=== PATIENT | female | born 2000 | race African-American/Black ===

== ENCOUNTER → 2023-04-21 | Emergency (ER) | payer SELFPAY ==
[2023-04-21 19:44] LABS: Specific Gravity 1.018 (1.005-1.030); Urine Bacteria 20-50 /HPF (<20); Urine Bilirubin NEGATIVE (Negative); Urine Blood Negative (Negative); Urine Clarity Extremely Turbid (Clear); Urine Color Light-Yellow (Yellow); Urine Culture Reflex Order NOT NEEDED; Urine Glucose NEGATIVE (Negative); Urine Ketones NEGATIVE (Negative); Urine Microscopic Reflex YN ORDER UMIC; Urine Mucus 1+ /HPF (None Seen); Urine Nitrite NEGATIVE (Negative); Urine Protein NEGATIVE (Negative); Urine RBC <5 /HPF (None Seen); Urine Urobilinogen Normal (Normal); Urine WBC <5 /HPF (<5); Urine pH 5.5 (5.0-7.0)
--- NOTE | 2023-04-21 20:28 | ER ---
Nurse's Notes [facility] Name: Deja Hassan Age: 23 yrs Sex: Female : 2000 Arrival Date: 04/21/2023 Time: 18:06 Bed 10 Private MD: Diagnosis: UTI/ Urinary tract infection, site not specified Presentation: 04/20 19:04 Chief complaint: Patient states: Pt states LMP 03/21/2023. Pt states urine ll1 tests have been negative. Pt c/o headaches, urinary frequency, fatigue x 3-4 days. Pt has history of spont ab at 6 wks on 10/2020. Coronavirus screen: At this time, the client does not indicate any symptoms associated with coronavirus-19. Ebola Screen: No symptoms or risks identified at this time. Initial Sepsis Screen: Does the patient meet any 2 criteria? No. Patient's initial sepsis screen is negative. Does the patient have a suspected source of infection? No. Patient's initial sepsis screen is negative. Risk Assessment: Do you want to hurt yourself or someone else? Patient reports no desire to harm self or others. Onset of symptoms was April 17, 2023. 19:04 Method Of Arrival: Ambulatory ll1 19:04 Acuity: ELADIO 3 ll1 Triage Assessment: 19:07 Headache History: Denies prior headaches. General: Appears in no apparent distress. ll1 Behavior is calm, cooperative. Pain: Denies pain. Pain: Pain at worst was 8 out of 10 on a pain scale. Pain began 2-3 days ago. Also complains of fatigue. EENT: No deficits noted. No signs and/or symptoms were reported regarding the EENT system. Neuro: Denies headache. Cardiovascular: No deficits noted. Respiratory: No deficits noted. GI: No deficits noted. No signs and/or symptoms were reported involving the gastrointestinal system. : Denies urinary frequency. Derm: No deficits noted. No signs and/or symptoms reported regarding the dermatologic system. Musculoskeletal: No deficits noted. No signs and/or symptoms reported regarding the musculoskeletal system. Historical: - Allergies: 19:07 No Known Allergies; ll1 - Home Meds: 19:07 Vitamin Oral [Active]; ll1 - PMHx: 19:07 None; ll1 - PSHx: 19:07 None; ll1 - Immunization history:: Adult Immunizations unknown. - Social history:: Smoking status: Reported history of juuling and/or vaping. Screenin:17 [facility] ED Fall Risk Assessment (Adult) History of falling in the last 3 months, kd3 including since admission No falls in past 3 months (0 pts) Confusion or Disorientation No (0 pts) Intoxicated or Sedated No (0 pts) Impaired Gait No (0 pts) Mobility Assist Device Used No (0 pt) Altered Elimination No (0 pt) Score/Fall Risk Level 0 - 2 = Low Risk Oriented to surroundings. Abuse screen: Denies threats or abuse. Denies injuries from another. Nutritional screening: No deficits noted. Tuberculosis screening: No symptoms or risk factors identified. Assessment: 20:17 General: Appears in no apparent distress. Behavior is calm, cooperative. Pain: Denies kd3 pain. Neuro: Level of Consciousness is awake, alert, obeys commands, Oriented to person, place, time, situation. Cardiovascular: Patient's skin is warm and dry. Respiratory: Airway is patent Trachea midline Respiratory effort is even, unlabored, Respiratory pattern is regular, symmetrical. Vital Signs: 19:04 BP 139 / 81; Pulse 67; Resp 16; Temp 98.4(TE); Pulse Ox 100% ; Weight 72.57 kg; Height ll1 5 ft. 6 in. ; Pain 0/10; 20:20 BP 125 / 86; Pulse 68; Resp 19; Pulse Ox 100% on R/A; kd3 19:04 Body Mass Index 25.82 (72.57 kg, 167.64 cm) ll1 19:04 Pain Scale: Adult ll1 ED Course: 18:10 Patient arrived in ED. im 18:11 Debby Waggoner FNP-C is PHCP. kb 18:11 Kunal Lee MD is Attending Physician. kb 19:06 Triage completed. ll1 19:09 Arm band placed on right wrist. ll1 20:17 Patient has correct armband on for positive identification. Provided Education on: kd3 blood draw . 20:20 Neeru Zuniga, RN is Primary Nurse. kd3 20:33 No provider procedures requiring assistance completed. Patient did not have IV access kd3 during this emergency room visit. Administered Medications: No medications were administered Medication: 20:17 VIS not applicable for this client. kd3 Outcome: 20:27 Discharge ordered by . nicolas 20:33 Discharged to home ambulatory, kd3 20:33 Condition: stable 20:33 Discharge instructions given to patient, Instructed on discharge instructions, follow up and referral plans. Demonstrated understanding of instructions, follow-up care, medications, Prescriptions given X 1, :33 Patient left the ED. kd3 Signatures: Debby Waggoner, SLEEVER-C BRYON-Winnie Esparza RN RN ll1 Neeru Zuniga RN RN kd3 Leanna Espinoza
--- NOTE | 2023-04-21 20:28 | EDPHYS ---
Physician Documentation [facility] Name: Deja Hassan Age: 23 yrs Sex: Female : 2000 Arrival Date: 04/21/2023 Time: 18:06 Bed 10 Private MD: ED Physician Kunal Lee HPI: 04/20 18:23 This 23 yrs old Female presents to ER via Unassigned with complaints of Last menstrual kb cycle on 03/21/23, Headache, Fatigue. 18:23 Patient is a 23-year-old female who presents for possible . States she is 8 kb days late on her menstrual cycle and has been having headaches, fatigue and urinary frequency for 2 days. States she is taken multiple home test that were all negative but she believes she is so she wanted a serum test.. Historical: - Allergies: 19:07 No Known Allergies; ll1 - Home Meds: 19:07 Vitamin Oral [Active]; ll1 - PMHx: 19:07 None; ll1 - PSHx: 19:07 None; ll1 - Immunization history:: Adult Immunizations unknown. - Social history:: Smoking status: Reported history of juuling and/or vaping. ROS: 18:19 Constitutional: As per HPI kb Exam: 18:19 Constitutional: This is a well developed, well nourished patient who is awake, alert, kb and in no acute distress. Head/Face: Normocephalic, atraumatic. ENT: Moist Mucous membranes Cardiovascular: Regular rate Respiratory: Respirations even and unlabored. No increased work of breathing. Talking in full sentences Abdomen/GI: Soft, non-tender. No distention Skin: Warm, dry with normal turgor. Normal color. MS/ Extremity: Pulses equal, no cyanosis. Neurovascular intact. Full, normal range of motion. Neuro: Awake and alert, GCS 15, oriented to person, place, time, and situation. Moves all extremities. Normal gait. Vital Signs: 19:04 BP 139 / 81; Pulse 67; Resp 16; Temp 98.4(TE); Pulse Ox 100% ; Weight 72.57 kg; Height ll1 5 ft. 6 in. ; Pain 0/10; 20:20 BP 125 / 86; Pulse 68; Resp 19; Pulse Ox 100% on R/A; kd3 19:04 Body Mass Index 25.82 (72.57 kg, 167.64 cm) ll1 19:04 Pain Scale: Adult ll1 MDM: 18:13 Patient medically screened. kb 18:21 Differential diagnosis: , uti, dehydration. Data reviewed: vital signs, nurses kb notes. 20:27 Counseling: I had a detailed discussion with the patient and/or guardian regarding the kb historical points, exam findings, and any diagnostic results supporting the discharge/admit diagnosis, lab results, the need for outpatient follow up, an OB/Gyne specialist, to return to the emergency department if symptoms worsen or persist or if there are any questions or concerns that arise at home. 04/20 18:19 Order name: Test, Serum; Complete Time: 20:26 kb 04/20 18:22 Order name: Urinalysis w/ reflexes; Complete Time: 19:49 kb Administered Medications: No medications were administered Disposition: 20:44 Co-signature as Attending Physician, Kunal Lee MD I reviewed the patient's care rt provided by the Advanced Practice Provider and agree with the diagnosis and treatment plan. Disposition Summary: 04/21/23 20:27 Discharge Ordered Notes: Location: Home kb Condition: Stable kb Diagnosis - UTI/ Urinary tract infection, site not specified kb Followup: kb - With: Emergency Department - When: As needed - Reason: Worsening of condition Followup: kb - With: Private Physician - When: 2 - 3 days - Reason: Recheck today's complaints, Continuance of care, Re-evaluation by your physician Discharge Instructions: - Discharge Summary Sheet kb - Urinary Tract Infection, Adult, [id number] kb Forms: - Medication Reconciliation Form kb - Thank You Letter kb - Antibiotic Education kb - Prescription Opioid Use kb - Patient Portal Instructions kb - Leadership Thank You Letter kb Prescriptions: - Macrobid 100 mg Oral Capsule - take 1 capsule ORAL route every 12 hours for 10 days; 20 capsule; Refills: 0, kb Product Selection Permitted Signatures: Dispatcher [employer] Debby Roe FNP-C FNP-Ckb Lewis, Lynsay, RN RN ll1 Kunal Lee MD MD rt
[2023-04-21 21:38] VITALS: BP 125/86; TEMP 98.4; O2SAT 100
== END ==
LOC: ER 18:06
DX: N39.0 Urinary tract infection, site not specified (principal)
CPT/HCPCS: 36415; 81001; 84703; 99283

== ENCOUNTER 2023-08-05 07:55 | Emergency (ER) | payer OTHER, SELFPAY ==
--- OUTSIDE RECORDS SUMMARY | 2023-08-05 07:59 | XMS REPORT | Continuity of Care Document ---
Author Name Unknown Address [address] [facility] [address] [place] [address] [facility] thconnect Address [address] [facility] [address] [place] [address] Care Team Providers Care Gallery Manager Name Role Phone Pcp, Patient Does Not Have A Primary Care Physic mikael VAL MITCHELL Attending Clinician Unavailable Doctor Unassigned, [place] Attending Clinician U omar Patterson MD, Andria Johansen Attending Clinician Val Mitchell MD Attending Clinician Arthur SALDIVAR, Valentino Carlisle Attending Clinician Unavaila ble 2, [facility] Attending Clinician Unavailable Payers Payer Name Policy Type Policy Number Effective Date Expirati on Date Source [place]ICAID [place] [id number] 2023 00:00:00 Problems Condition Name Condition Details Condition Category Status Onset Date Resolution Date Last Treatment Date Treating Clinician Comments Source High-risk in first trimester High-risk in first trimester Disease Active 07-19 00:00: 00 [facility] Less than 8 weeks gestation of Less than 8 weeks gestation of Disease Active 07-19 00:00: 00 [facility] Mental disorder in , antepartum , first trimester Mental disorder in , antepartum , first trimester Disease Active 07-19 00:00: 00 [facility] Allergies, Adverse Reactions, Alerts Allergy Name Allergy Type Status Severity Reaction(s) Onset Date Inactive Date Treating Clinician Comments Source NO KNOWN ALLERGIE S Drug Class Active [facility] Social History Social Habit Start Date Stop Date Quantity Comments Source ASSERTION 2023-06-10 00:00:00 [facility] Tobacco use and exposure 2023-07-20 00:00:00 2023-07-20 00:00:00 Smokeless tobacco non-user [facility] Alcoholic beverage intake 2023-07-20 00:00:00 2023-07-20 00:00:00 Ex-drinker (finding) [facility] History of Social function 2023-07-20 00:00:00 2023-07-20 00:00:00 [facility] Sex assigned at 2000 00:00:00 2000 00:00:00 [facility] Smoking Status Start Date Stop Date Source Never smoked tobacco [facility] Medications Ordered Medication Name Filled Medication Name Start Date Stop Date Current Medication? Ordering Clinician Indication Dosage Frequency Signature (SIG) Comments Components Source metroNIDAZO LE 500 mg tablet 07-23 00:00: 00 Yes [id number] 500mg Take 1 tablet by mouth every 12 (twelve) hours. [facility] Vital Signs Vital Name Observation Time Observation Value Comments S ource Systolic blood pressure 2023-07-20 19:24:00 123 mm[Hg] [facility] Diastolic blood pressure 2023-07-20 19:24:00 80 mm[Hg] [facility] Heart rate 2023-07-20 19:24:00 89 /min [facility] Body temperature 2023-07-20 19:24:00 36.56 Mariella [facility] Respiratory rate 2023-07-20 19:24:00 18 /min [facility] Body height 2023-07-20 19:24:00 167.6 cm [facility] Body weight 2023-07-20 19:24:00 82.373 kg [facility] BMI 2023-07-20 19:24:00 29.31 kg/m2 [facility] Procedures Procedure Date / Time Performed Performing Clinician Source US OB TRANSVAGINAL 2023-07-20 22:42:37 Val Mitchell [facility] URINE CULTURE 2023-07-20 20:16:00 Adum, Val Arias [facility] URINE DRUG (IMMUNOASSAY) - COMPREHENSIVE DRUG SCREEN 2023-07-20 20:07:00 Adum, Val Silvina [facility] GC & CHLAMYDIA AMPLIFIED ASSAY 2023-07-20 20:07:00 Adum, Avl Silvina [facility] GALV ONLY - VAGINAL PATHOGENS BY NUCLEIC ACID TESTING 2023-07-20 20:07:00 Adum, Val Silvina [facility] TRICHOMONAS AMPLIFIED ASSAY 2023-07-20 20:07:00 Adum, Val Silvina [facility] PAP SMEAR-LIQUID BASED-CP 2023-07-20 20:07:00 Adum, Val oCol [facility] POCT TEST 2023-07-20 00:00:00 Adum, Val Cool [facility] POCT URINALYSIS W/O SPECIFIC GRAVITY 2023-07-20 00:00:00 Adum, Val Silvina [facility] Encounters Start Date/Time End Date/Time Encounter Type Admission Type Attending [facility] Care Facility Care Department Encounter ID Source 2023-08-17 16:15:00 2023-08-17 16:15:00 Outpatient R ADUM, VAL [facility] [id number] [facility] 2023-08-03 00:00:00 2023-08-03 14:59:34 Patient Secure Msg Doctor Unassigned, [place] [facility] ..114 350.1.13.10 4.2.7.2.686 [id number] [facility] 2023-07-31 00:00:00 2023-07-31 09:49:15 Telephone Andria Patterson [facility] .114 350.1.13.10 4.2.7.2.686 [id number] [facility] 2023-07-25 00:00:00 2023-07-27 16:10:09 Telephone Val Mitchell [facility] 1..114 350.1.13.10 4.2.7.2.686 [id number] 134 [id number] [facility] 2023-07-25 14:30:00 2023-07-25 14:30:00 Outpatient R ADVAL LAWLER [facility] [id number] [facility] 2023-07-24 00:00:00 2023-07-24 09:55:31 Telephone AdumVal [facility] 1.2.840.114 350.1.13.10 4.2.7.2.686 [id number] 134 [id number] [facility] 2023-07-21 00:00:00 2023-07-22 07:02:21 Nurse Triage Arthur [facility] 1.2.840.114 350.1.13.10 4.2.7.2.686 [id number] [facility] 2023-07-20 15:30:00 2023-07-20 15:45:00 [employer]illing [employer] Professional Visit 2, [facility] Lab AdVal lawler [facility] 1.2.840.114 350.1.13.10 4.2.7.2.686 [id number] [facility] 2023-07-20 14:00:00 2023-07-20 15:16:29 Initial Visit FedeVal lawler [facility] 1.2.840.114 350.1.13.10 4.2.7.2.686 [id number] 134 [id number] [facility] 2023-07-20 14:00:00 2023-07-20 15:16:29 Outpatient R STEPHENVAL VIVIAN [facility] [id number] [facility] Results Test Description Test Time Test Comments Results Result Co mments Source [facility] w/o Specific Tzwoddh5862-93-75 19:26:00* Test Item Value Reference Range Interpretation Comme nts POCT PH U (test code = 3254) n/a 5-8 POCT U LEUK EST (test code = 3263) n/a Negative - Negative POCT U NIT (test code = 3262) n/a Negative - Negati ve POCT U PROT (test code = 3259) negative Negative - Negat ed POCT U GLU (test code = 3256) normal Negative - Negati ve POCT U KETONE (test code = 3258) n/a Negative - Neg ative POCT U BLD (test code = 3257) n/a Negative - Negati ve [facility] Ejci3263-41-29 19:25:00* Test Item Value Reference Range Interpretation Comme nts POCT PREG (test code = 1605) Positive On board controls acceptable with C Line (test code = 3574) Yes POCT PREG LOT # (test code = 3575) POCT PREG TEST DATE ( test code = 3576) [facility] Aaki0897-83-46 19:25:00* Test Item Value Reference Range Interpretation Comme nts POCT PREG (test code = 1605) Positive On board controls acceptable with C Line (test code = 3574) Yes POCT PREG LOT # (test code = 3575) POCT PREG TEST DATE ( test code = 3576) [facility] Notes Date/Time Note Provider Source 2023-07-31 09:45:13 1318-48-97O22:45:13F ormatting of this note might be different from the original.Spoke with patient. Patient identification verified by name and . Patient reports she is dizzy while at work today. Patient states seh ate a couple bowls of cereal before work. Patient denies nausea, vomiting, headache, vision changes. Patient advised to increase water intake, eat nutritious meals with snacks, use compression socks while at work. Er precautions given. Patient advised to contact clinic if dizziness does not go away with recommendations. Patient verbalized understanding.Chris Rush RN 07/31/2023 9:49 AM 69868-7Tfgpdaksc encounter RvlsPH2964-99-22G66:49:15Telephone encounter NoteTXT1.2.840.593596.1.13.104.2.7 .2.438373|[id number] for patient atoj16776-8AlxsNYGLCUCOONDCvgudwkc d C-CDA narrative [id number] Collins RN[id number] 32DIOAZLPDNXCJAYLGUOLIKK3389-20-48 T09:49:151.2.840.850393.1.72.3.15| 1.2.840.467818.1.13.104.2.7.2.7278 [id number] Chris Rush RN [facility] 2023-07-31 09:41:43 4403-58-36I59:41:43F ormatting of this note might be different from the original.Pt. Is at work and dizzy9 wks 33685-6Srnxbyphx encounter CggqEI2009-29-45X93:42:37Telephone encounter NoteTXT1.2.840.830570.1.13.104.2.7 .2.661861|[id number] for patient ftsp69467-9IkfoLGMKGBGEDQDKujlxggt d C-CDA narrative ejfh394608353Jgpxbsi D [id number] 18XTAWDZKFWUMBTTVTTJCHVY7778-70-53 T09:42:371.2.840.382013.1.72.3.15| 1.2.840.913073.1.13.104.2.7.2.7278 [id number] Anisha Hanna [facility] 2023-07-27 16:09:57 6013-85-77C01:09:57F ormatting of this note might be different from the original.Mychart message sent.Chris Rush RN 07/27/2023 4:10 PM 45456-4Fibnodydl encounter LgbgPD3178-49-70L62:10:09Telephone encounter NoteTXT1.2.840.694563.1.13.104.2.7 .2.141566|[id number] for patient cpie82303-6RzbtXRQLBJYTJWQNflrspbt d C-CDA narrative pmnj168979357Baeevcp Collins [id number] 55REHBDYRAFWWCCDORCSRFJH6960-60-11 T16:10:091.2.840.747367.1.72.3.15| 1.2.840.777379.1.13.104.2.7.2.7278 [id number] Chris Rush [facility] 2023-07-25 16:56:39 2306-48-46E08:56:39F ormatting of this note might be different from the original.Deja Isaacs is a 23 year old femalePatient is calling wanting to know if it's okay to take Rx metroNIDAZOLE 500 mg tablet. Pt states in description of medication to not take unless over 12 weeks . Please advise. [phone] (home) 97509-8Ooyhzwzks encounter EaywNL3055-41-89B42:02:17Telephone encounter NoteTXT1.2.840.995688.1.13.104.2.7 .2.026214|[id number] for patient autx42886-2KrwsIEJHYGVIXCOIioegpbs d C-CDA narrative nein86956217Cjccfcg [id number] 69JAEKSDNBOEWAVJFAJCVRWJ2721-32-04 T17:02:171.2.840.029620.1.72.3.15| 1.2.840.839300.1.13.104.2.7.2.7278 [id number] Diamond Carrion [facility] 2023-07-24 10:42:11 0708-12-51V21:42:11F ormatting of this note might be different from the original.Returned patients call to phone number requested. Name and verified. Patient requesting all lab results. Patient given lab results per Dr. Mitchell's note. Patient wanting to know why she is positive for VZV and rubella. Patient advised she is positive for antibodies for rubella/varicella. Patient advised this is a normal results. Patient advised she is + for BV and a prescription will be sent to her pharmacy. Patient verbalized understanding. Prescription sent.Chris Rush RN 07/24/2023 10:47 AM 33443-4Adxaqltvp encounter LzdlDZ3425-36-45G55:47:20Telephone encounter NoteTXT1.2.840.483961.1.13.104.2.7 .2.326302|[id number] for patient ttqq29954-1SqotRHFMNBAMJSJYnytkxsh d C-CDA narrative text[address] YlmeXdankbypuWxyynxeasWRQU50593936 98VEVIWDMEVOQDYMDKLTLMSV9769-49-57 T10:47:201.2.840.905731.1.72.3.15| 1.2.840.471147.1.13.104.2.7.2.7278 [id number] [facility] 2023-07-24 09:49:58 5718-15-69G66:49:58F ormatting of this note might be different from the original.Pt is requesting to speak to a nurse regarding her lab results. Please call pt at [phone] signed by Kenzie Ac at 07/24/2023 9:55 AM QAS25929-4Ruqauvfim encounter OiqqLC8949-41-98A66:55:21Telephone encounter NoteTXT1.2.840.038911.1.13.104.2.7 .2.470921|[id number] for patient kzar11474-8MnopYZMFJPOHDDXMnwmptqj d C-CDA narrative [id number] [address]TXTX[address] 32OOOGMPSBTNQTLEJSWCKAAU4864-46-81 T09:55:211.2.840.356931.1.72.3.15| 1.2.840.321065.1.13.104.2.7.2.7278 [id number] [facility] 2023-[facility]-21 16:40:00 6024-01-94U83:40:00F ormatting of this note might be different from the original.Regardin wk , vaginal discharge after swimming----- Message from Diamond Carrion sent at 07/21/2023 4:37 PM CDT -----Deja Isaacs is a 23 year old femalePt was swimming for about an hr half and experiencing vaginal discharge is concerned. No other symptoms and requesting to speak with nurse 41528-6Ynjssugah encounter UhncJK2288-31-28X55:40:15Telephone encounter NoteTXT1.2.840.891506.1.13.104.2.7 .2.074898|[id number] for patient ckmq18653-0EzloFQTAOCQLWBXUzysdvlh d C-CDA narrative [id number] T Ross RN[id number] 64ESQIMWHWVLJNBUOJYFFRIV9554-87-92 T16:40:151.2.840.794632.1.72.3.15| 1.2.840.604863.1.13.104.2.7.2.7278 [id number] Valentino Gibson RN [facility] 2023-07-21 16:40:00 1050-61-49X86:40:00F ormatting of this note might be different from the original.Reason for DispositionAbnormal color vaginal discharge (i.e., yellow, green, manning)Protocols used: - Vaginal Lsuhjlkoa-RSQAI-UUYhekconks Triage AssessmentLast Clinic Visit: 07/20/2023 initial visitPrimary Symptom: vaginal discharge after swimmingOnset / Duration: today a4Ccclyxps / Description: yellowPain / Severity: 0 out of 10Associated Symptoms: noneFever / Method: deniesHydration: last void at 2Treatment so far: noneEffect on ADL's: noneGestational Weeks: 7 weeks 6 daysRupture Membranes: n/aBleeding / Spotting / Pads per hour: noFetal Movement: n/aPara / : G2 AB1EDC: 03/02/2024Pre-existing condition / Immunocompromised: high risk pregnancyNurse Note: after assessment an appt within 3 days could not be obtained. Call back parameters discussed, pt verbalized understanding. Encounter routed to clinic for review. Pt also asking if she can swim while .[facility] [place] [address]-4Ngtpihymn encounter DughUW1626-44-28O99:05:21Telephone encounter NoteTXT1.2.840.684488.1.13.104.2.7 .2.717290|[id number] for patient wuls21676-8WawfAPZKMJITABVVozekdzy d C-CDA narrative text[address] XhmqMomcmdbpuQototoafvOIFB58043358 25HSVXPVAKPIFBZCCJGJNNAR9573-43-31 T17:05:211.2.840.369198.1.72.3.15| 1.2.840.026201.1.13.104.2.7.2.7278 [id number] [facility] 2023-07-20 15:30:00 2452-83-90A55:30:00F ormatting of this note is different from the original.Images from the original note were not included.Venipuncture collection performed by clean technique on the right anticubitus. Total of 1 attempts were made. Slight pressure and a bandage/dressing were applied to the site(s). The patient experienced no complications. The following specimens were processed according to instructions and sent to [facility] laboratories per lab order on 07/20/2023:LT BLUESST 4RED 1LAV 4PPTDK GREEN (LiHep)DK GREEN (SodH)GRAYDK BLUE (K2)DK BLUE (S)ACDBlood CultureNIPT/NTDStudent nilsa blood 38493-0Xlvxf UneyRV4196-94-88T77:39:04Nurse NoteTXT1.2.840.143187.1.13.104.2.7 .2.099043|[id number] for patient qkdy38835-6Lrsbs NoteLNNARRATIVEFormatted C-CDA narrative text[address] IsirVc[id number] 02MUSMJMPSPNIBOLGMWECVMC8006-55-63 T15:39:041.2.840.324061.1.72.3.15| 1.2.840.769720.1.13.104.2.7.2.7278 [id number] [facility] 2023-07-20 14:00:00 5595-86-62T13:00:00F ormatting of this note is different from the original.Age: 23 year oldGA: 6i7aOsrscba Cmhersonjim Isaacs is a 23 year old at 8w6d by LMP presents for Initial OB visit today. Patient is unsure of her LMP.Denies vaginal bleeding, abdominal pain or cramps. She reports some nausea without vomiting. 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 She denies domestic violence/immediate partner violence.Sonogram confirmed an IUP at 12w2d gestation with an 03/02/2023ssessment/PlanHigh-risk in first trimester (primary encounter diagnosis)Missed mensesLess than 8 weeks gestation of pregnancyDiscussed do's and don'ts of , safe foods, safe medications. NOB folder givenWe discussed course, labs, aneuploidy and genetic carrier screening and ultrasounds.Expectations for weight gain this include 20-25 pounds. Exercise in discussed and encouraged. aneuploidy options were reviewed including NIPT: cFDNA test and 2nd trimester QUAD screen. The benefits and short falls of these screening tests were reviewed. Also discussed diagnostic tests: CVS vs amniocentesis.She has opted for NIPT and [facility] genetic carrier screeningReviewed Zika virus precautions .Discussed about COVID-19/flu precautions. Social distancing, frequent hand washings, signs/symptoms for testing and to follow CDC recommendations discussed.Vaccinations in reviewed: Tdap, RSV, COVID and FluI discussed the call schedule and that I deliver here at [facility]. I discussed that I have two partners, Dr. Patterson and Dr. You and that they may deliver her or take care of her during her . I discussed that at [facility] we do not have a NICU, and that high risk pregnancies or deliveries less than 36 weeks will be transferred to [place].All questions were answered.NOB labs todayPregnancy precautions reviewedEncouraged to call if have any additional questions or concerns.Plan: POCT Test, POCT Urinalysis w/oSpecific Drexel, Glycosylated Hemoglobin(A1C), Urine Culture, Sickle Cell Screen, UrineDrug (Immunoassay) - Comprehensive Drug Screen,VZV Antibody Screen, [facility] or [place] Only - Rpr, Workup, Blood Bank, Cbc with Diff,Rubella Screen IgG, Hcv Antibody, Hepatitis BSurface Antigen, HIV 1/2 Ag-Ab with Reflex, PAPSmear-Liquid Based, GC & CHLAMYDIA AMPLIFIEDASSAY, TRICHOMONAS AMPLIFIED ASSAY, Galv Only -Vaginal Pathogens by Nucleic Acid Testing,Urine Drug (Immunoassay) - Comprehensive DrugScreen, PAP Smear-Liquid Based, GC & CHLAMYDIAAMPLIFIED ASSAY, TRICHOMONAS AMPLIFIED ASSAY,Urine CultureMental disorder in , antepartum, first trimester- hx of depression with Anxiety. Self manages her symptoms.- Was on Prozac which stopped at age 19.- EPDS 16 and BILLY 13 today- Reports that apart from feeling anxious about the possibilities of another miscarriage, her mood is stable- I explained her feeling of anxiety is very normal at this stage of .- We discussed options for management including therapy and medication( if needed). Declined referral for therapy at this stage- Needs EPDS/BILLY q visitVaginal discharge during in first trimesterPlan: Galv Only - Vaginal Pathogens by Nucleic AcidTesting,Ultrasound scan to confirm viability with history of miscarriageOB Ultrasound TransvaginalReturn to clinic in 4 weeks for OB or PRNReviewed patient instructions and provided printed copy.Future AppointmentsIn 4 weeks Val Mitchell MD [facility] MD Stephen 07/20/2023 6:00 PM 94408-7Qqpjjqvk czngAY7770-21-72U95:03:03Progress noteTXT1.2.840.412388.1.13.104.2.7 .2.951209|[id number] for patient wtax55553-4WwovYPCOBLSKGILBhvmxpsi d C-CDA narrative text[address] FyipUhdkskyxuTcfqxmivjSYZR56904843 34NQDNKIRDRSXVUSZJRWBLXZ2852-83-52 T18:03:031.2.840.963116.1.72.3.15| 1.2.840.274033.1.13.104.2.7.2.7278 [id number] [facility]"
--- NOTE | 2023-08-05 08:51 | RAD REPORT ---
EXAM DESCRIPTION: US - 1St Trimest Single 1St Fetus - 08/05/2023 8:32 am CLINICAL HISTORY: ABD CRAMPING, COMPARISON: No comparisons TECHNIQUE: Sonographic grayscale and color flow images of a first-trimester were obtained through transabdominal approach. FINDINGS: A single live intrauterine is identified. Bilateral heart rate: 168 BPM. Callahan-rump length measures 35.1 millimeters, corresponding to gestational age of 10 weeks, 3 days. Normal yolk sac is visualized. Small ovoid hypoattenuating structure adjacent to the left border of the gestational sac, measuring 9 x 7 mm. Maternal ovaries were not visualized. Trace left pelvic free-fluid. IMPRESSION: 1. Single live intrauterine . 2. Calculated gestational age: 10 weeks, 3 days. Estimated due date by ultrasound: 02/28/2024. 3. Small ovoid hypoechoic 0.9 cm structure adjacent to the gestational sac on the left, may represent a small subchorionic bleed versus a venous lacune. Close clinical follow-up, and consideration of sh ort-term sonographic follow-up are recommended.
--- NOTE | 2023-08-05 09:14 | EDPHYS ---
Physician Documentation [facility] Name: Deja Hassan Age: 23 yrs Sex: Female : 2000 Arrival Date: 08/05/2023 Time: 07:55 Bed 14 Private MD: ED Physician Von Roberts HPI: 08/04 09:09 This 23 yrs old Black Female presents to ER via Ambulatory with complaints of CRYING rn AFTER RELATIONSHIP BREAKUP. 09:09 The patient presents to the emergency department with no movement. rn course: care: at a clinic, Ultrasound: the patient has not had an ultrasound. Previous pregnancies: in previous pregnancies patient has had. Associated signs and symptoms: Pertinent negatives: abdominal pain, fever, vaginal bleeding, vaginal discharge. The patient has not experienced similar symptoms in the past. Patient reports an argument last night and emotional distress, not feeling baby move but also denies any bleeding or leakage of fluid. Here to make sure baby is okay. Has had miscarriage in the past at 5 weeks.. Historical: - Allergies: 08:15 No Known Allergies; hb - Home Meds: 08:15 Vitamin Oral [Active]; hb - PMHx: 08:15 None; hb - PSHx: 08:15 None; hb - Immunization history:: Adult Immunizations up to date. - Infectious Disease History:: Denies. - Social history:: Smoking status: Patient denies any tobacco usage or history of. - Family history:: not pertinent. - Hospitalizations: : No recent hospitalization is reported. ROS: 09:09 Constitutional: Negative for fever, chills, and weight loss, Cardiovascular: Negative rn for chest pain, palpitations, and edema, Respiratory: Negative for shortness of breath, cough, wheezing, and pleuritic chest pain, Abdomen/GI: Negative for abdominal pain, nausea, vomiting, diarrhea, and constipation, : Negative for injury, bleeding, discharge, and swelling, MS/Extremity: Negative for injury and deformity, Exam: 09:09 Constitutional: This is a well developed, well nourished patient who is awake, alert, rn and in no acute distress. Cardiovascular: Regular rate and rhythm. No pulse deficits. Respiratory: No increased work of breathing, no retractions or nasal flaring. Abdomen/GI: Soft, nontender MS/ Extremity: Pulses equal, no cyanosis. Neuro: Awake and alert, GCS 15 Vital Signs: 08:10 BP 118 / 63; Pulse 66; Resp 16; Temp 97.9(O); Pulse Ox 100% on R/A; Weight 82.1 kg; hb Height 5 ft. 6 in. ; Pain 0/10; 08:10 Body Mass Index 29.21 (82.10 kg, 167.64 cm) hb 08:10 Pain Scale: Adult hb MDM: 08:02 Patient medically screened. rn 09:09 Differential diagnosis: Differential diagnosis: Emotional distress. Data reviewed: rn vital signs, nurses notes. Counseling: I had a detailed discussion with the patient and/or guardian regarding the historical points, exam findings, and any diagnostic results supporting the discharge/admit diagnosis, radiology results, the need for outpatient follow up, to return to the emergency department if symptoms worsen or persist or if there are any questions or concerns that arise at home. Special discussion: I discussed with the patient/guardian in detail that at this point there is no indication for admission to the hospital. It is understood, however, that if the symptoms persist or worsen the patient needs to return immediately for re-evaluation. 08/04 08:33 Order name: 1St Trimest Single 1St Fetus; Complete Time: 08:54 EDMS Administered Medications: No medications were administered Disposition Summary: 08/05/23 09:13 Discharge Ordered Notes: Location: Home rn Problem: new rn Symptoms: have improved rn Condition: Stable rn Diagnosis - Encounter for supervision of normal first , first trimester rn Followup: rn - With: Private Physician - When: As needed - Reason: Recheck today's complaints, Re-evaluation by your physician Discharge Instructions: - First Trimester of , [id number] rn - Discharge Summary Sheet hb Forms: - Medication Reconciliation Form rn - Antibiotic pricing intern - Prescription Opioid Use rn - Patient Portal Instructions rn - Leadership Thank You Letter rn - Work release form hb Signatures: Dispatcher [employer] EDVon Starr MD MD rn Baxter, Heather, RN RN hb Corrections: (The following items were deleted from the chart) 08:17 08:17 OB [email or web address] ordered. EDMS EDMS
--- NOTE | 2023-08-05 09:14 | ER ---
Nurse's Notes [facility] Name: Deja Hassan Age: 23 yrs Sex: Female : 2000 Arrival Date: 08/05/2023 Time: 07:55 Bed 14 Private MD: Diagnosis: Encounter for supervision of normal first , first trimester Presentation: 08/04 08:10 Chief complaint: Has been up crying all night after relationship breakup, is 10 weeks hb and wants to "make sure everything is okay." , LMP 4/, TD 03/02. Coronavirus screen: At this time, the client does not indicate any symptoms associated with coronavirus-19. Ebola Screen: No symptoms or risks identified at this time. Initial Sepsis Screen: Does the patient meet any 2 criteria? No. Patient's initial sepsis screen is negative. Does the patient have a suspected source of infection? No. Patient's initial sepsis screen is negative. Risk Assessment: Do you want to hurt yourself or someone else? Patient reports no desire to harm self or others. Onset of symptoms was August 05, 2023. 08:10 Method Of Arrival: Ambulatory hb 08:10 Acuity: ELADIO 3 hb Triage Assessment: 08:15 General: Appears in no apparent distress. Behavior is cooperative, crying, flat. Pain: hb Denies pain. Neuro: Level of Consciousness is awake, alert, obeys commands, Oriented to person, place, time, situation. Cardiovascular: Patient's skin is warm and dry. Respiratory: Respiratory effort is even, unlabored, Respiratory pattern is regular, symmetrical. Historical: - Allergies: 08:15 No Known Allergies; hb - Home Meds: 08:15 Vitamin Oral [Active]; hb - PMHx: 08:15 None; hb - PSHx: 08:15 None; hb - Immunization history:: Adult Immunizations up to date. - Infectious Disease History:: Denies. - Social history:: Smoking status: Patient denies any tobacco usage or history of. - Family history:: not pertinent. - Hospitalizations: : No recent hospitalization is reported. Screenin:27 [facility] ED Fall Risk Assessment (Adult) History of falling in the last 3 months, bp including since admission No falls in past 3 months (0 pts) Confusion or Disorientation No (0 pts) Intoxicated or Sedated No (0 pts) Impaired Gait No (0 pts) Mobility Assist Device Used No (0 pt) Altered Elimination No (0 pt) Score/Fall Risk Level 0 - 2 = Low Risk. Abuse screen: Denies threats or abuse. Denies injuries from another. Nutritional screening: No deficits noted. Tuberculosis screening: No symptoms or risk factors identified. Assessment: 08:15 General: Appears in no apparent distress. Behavior is cooperative, appropriate for age, bp anxious. Pain: Denies pain. : Denies cramping vaginal bleeding. 08:27 Reassessment: US COMPLETED. bp 09:33 Reassessment: Patient appears in no apparent distress at this time. Patient and/or hb family updated on plan of care and expected duration. Pain level reassessed. Patient is alert, oriented x 3, equal unlabored respirations, skin warm/dry/pink. Vital Signs: 08:10 BP 118 / 63; Pulse 66; Resp 16; Temp 97.9(O); Pulse Ox 100% on R/A; Weight 82.1 kg; hb Height 5 ft. 6 in. ; Pain 0/10; 08:10 Body Mass Index 29.21 (82.10 kg, 167.64 cm) hb 08:10 Pain Scale: Adult hb ED Course: 08:00 Patient arrived in ED. ts1 08:02 Von Roberts MD is Attending Physician. rn 08:06 Garrett Faye RN is Primary Nurse. bp 08:15 Triage completed. hb 08:17 Arm band placed on. hb 08:27 Patient has correct armband on for positive identification. bp 08:33 1St Trimest Single 1St Fetus In Process Unspecified. EDMS 09:32 Provided Education on: follow up. hb 09:32 No provider procedures requiring assistance completed. Patient did not have IV access hb during this emergency room visit. Administered Medications: No medications were administered Medication: 08:27 VIS not applicable for this client. bp Outcome: 09:13 Discharge ordered by . rn 09:32 Discharged to home ambulatory, hb 09:32 Condition: stable 09:32 Discharge instructions given to patient, Instructed on discharge instructions, follow up and referral plans. medication usage, Demonstrated understanding of instructions, follow-up care, medications, 09:33 Patient left the ED. hb Signatures: Dispatcher [employer] EDMS Von Roberts MD MD rn Baxter Kimberly, RN RN hb Garrett Faye, RN RN bp Kallie Carrasco, FAUSTINO PAS ts1
[2023-08-05 09:55] VITALS: BP 118/63; TEMP 97.9; O2SAT 100
== END 2023-08-05 09:33 | disposition home or self-care (01) ==
LOC: ER 07:55
DX: O26.891 Other specified pregnancy related conditions, first trimester (principal); Z3A.10 10 weeks gestation of pregnancy
CPT/HCPCS: 76801; 99282